=== PATIENT | female | born 1965 | race Caucasian/White ===

== ENCOUNTER 2024-02-24 13:55 | Outpatient (CLI) | payer OTHER, SELFPAY | END 2024-02-24 13:56 | disposition home or self-care (01) | LOC: LKVREF 13:58 | PROVIDERS: Visit Provider Nurse Practitioner Family | DX: I10 Essential (primary) hypertension (principal) | CPT/HCPCS: 80053 ==

== ENCOUNTER 2024-02-26 07:02 | Day surgery (SDC) | payer OTHER, SELFPAY ==
[2024-02-26] VITALS (9 sets, daily range): BP systolic 115–149; BP diastolic 78–98; PULSE 49–72; RESP 16; TEMP 36.2–37; O2SAT 96–100; BMI 21.8
--- OUTSIDE RECORDS SUMMARY | 2024-02-26 07:04 | XMS_ITS | Clinical Summary ---
Author Organization [facility] Address [place], [place] [address] Care Team Providers Care Fruit Or Nut Farmer Name Role Phone Zoe Bustos MD Primary Care Provide r Unavailable Allergies Active Allergy Reactions Criticality Noted Date Comments Amoxicillin Rash 04/20/2005 Sulfa (Sulfonamide Antibiotics) Rash 06/2005 Medications Tamoxifen Citrate 20 mg tablet Take 1 tablet by mouth once daily. 30 tablet 6 05/06/2013 12:16 PM CDT 08/10/2012 Active tamoxifen (NOLVADEX) 20 mg tablet Take 1 tablet by mouth once daily. 30 tablet 6 05/15/2014 2:50 PM CDT 11/17/2013 Active tamoxifen (NOLVADEX) 20 mg tablet Take 1 tablet by mouth once daily. 30 tablet 6 12/07/2014 1:00 PM CDT 11/23/2014 Active codeine-guaiFEN esin (ROBITUSSIN AC) 10-100 mg/5 mL liquid Take 5 mL by mouth every 6-8 hours as need for cough. 50 mL 03/21/2017 3:36 PM PUTTY TINTER MAKER 03/21/2017 Active codeine-guaiFEN esin (ROBITUSSIN AC) 10-100 mg/5 mL liquid Take 5 mL by mouth every 6-8 hours if needed for cough. 30 mL 12/15/2017 4:11 PM CDT 12/15/2017 Active clindamycin (CLEOCIN) 300 mg capsule Take 2 capsules by mouth 1 hour prior to dental visit. 6 capsule 09/20/2018 1:21 PM CDT 09/08/2018 Active Active Problems Problem Noted Date Diagnosed Date Anticoagulation monitoring, special range 2013 Family History Medical History Relation Name Comments Cancer-breast Mother age at dx 56 Cancer No Family History Cancer-colon No Family History Cancer-prostate No Family History Relation Name Status Comments Mother Social History Tobacco Use Types Packs/Day Years Used Date Smoking Tobacco: Never Smokeless Tobacco: Never Alcohol Use Standard Drinks/Week Comments Not Asked 0 (1 standard drink = 0.6 oz pur e alcohol) Comments No Sex and Gender Information Value Date Recorded Sex Assigned at Not on file Legal Sex Female 6:53 AM PUTTY TINTER MAKER Gender Identity Not on file Sexual Orientation Not on file Obstetrics History Last Filed Vital Signs Vital Sign Reading Time Taken Comments Blood Pressure 140/79 01/25/2021 1:19 PM PUTTY TINTER MAKER Pulse 102 01/25/2021 1:19 PM PUTTY TINTER MAKER Temperature 36.2 C (97.2 F) 01/25/2021 1:19 PM PUTTY TINTER MAKER Respiratory Rate 18 01/25/2021 1:19 PM PUTTY TINTER MAKER Oxygen Saturation 100% 01/25/2021 1:19 PM PUTTY TINTER MAKER Inhaled Oxygen Concentration - - Weight 60.8 kg (134 lb) 01/25/2021 1:19 PM PUTTY TINTER MAKER Height 167.6 cm (5' 6) 07/13/2013 8:35 AM CDT Body Mass Index 21.63 07/13/2013 8:35 AM CDT Plan of Treatment Health Maintenance Due Date Last Done Comments Tdap 1977 Depression screening for age 12+ 1978 HIV for age 15-65 1981 BMI (ht and wt on same day) for age 18+ 1984 Hepatitis C screening for ag e 18-79 1984 Tetanus booster 1986 Pap test for age 21-65 11/09/1987 Colonoscopy through age 75 11/09/2011 Lipids for age 45-75 11/09/2011 Mammogram for age 45-75 11/09/2011 09/10/19 11, 09/05/2010, 08/28/2009, Additional history exists Pneumococcal series for age 50+ (1 of 1 - PCV) 2016 Zoster (shingles) series for age 50+ (1 of 2) 2016 COVID-19 vaccine series ( - 2023-) 10/18/2023 Influenza for age 50-64 10/18/2023 Medical Devices Implanted Type Area Salesperson New Cars Device Identifier Shelf Expiration Date Model / Serial / Lot E Commerce Web Developer Tissue Cpx3 Ht W/Sut Tab 350cc - [id number] Implanted:Qty: 1 on 10/02/2010 at [facility] Explanted:at [facility] (Quantity not on file) Left: Chest J And J MileIQ [id number]# / [id number] / [id number] E Commerce Web Developer Tissue Cpx3 Ht W/Sut Tab 350cc - [id number] Implanted:Qty: 1 on 10/02/2010 at [facility] Explanted:at [facility] (Quantity not on file) Right: Chest J And J MileIQ [id number]# / [id number] / [id number] Dermis Flex Hd 4fdi09td Acellular - [id number] Implanted:Qty: 1 on 10/02/2010 at [facility] Explanted:at [facility] (Quantity not on file) Left: Chest Musculoskeletal Transplant [id number]# / [id number] / Dermis Flex Hd [id number] Acellular - [id number] Implanted:Qty: 1 on 10/02/2010 at [facility] Explanted:at [facility] (Quantity not on file) Right: Chest Musculoskeletal Transplant [id number]# / [id number] 132A / [id number] elround Implanted:Qty: 1 on 03/06/2011 at [facility] Explanted:at [facility] (Quantity not on file) Left: Breast R-ALLERGAN 03/29/2015 45-460 / [id number] / Description:NATRELLE STY 45- 460 GEL ROUND [id number] elround Implanted:Qty: 1 on 03/06/2011 at [facility] Explanted:at [facility] (Quantity not on file) Right: Breast R-ALLERGAN 45-460 / [id number] / Description:NATRELLE ST 45-4 60 GEL ROUND Head Hip Od28mm Md Dowd Cocr - [id number] Implanted:Qty: 1 on 07/13/2013 at [facility] Right: Hip F3 Foods [id number]# / / [id number] Acetabular Liner Hip Id28 Reflection Xlpe Implanted:Qty: 1 on 07/13/2013 at [facility] Right: Hip [id number] / / [id number] Description:ACETABULAR LINER HIP ID28 REFLECTION XLPE Procedures Procedure Name Priority Date/Time Associated Diagnosis Comments XR FFDM MAMMO UNI ADDL VIEWS LEFT (IA) Routine 09/09/2010 2:58 PM CDT Abnormal mammogram, unspecified from Last 3 Months or Most Recently Relevant to Health Maintenance Results * XR FFDM MAMMO UNI ADDL VIEWS LEFT (09/09/2010 2:58 PM CDT) Anatomical Region Laterality Modality BREASTS, Breast Left Left Mammography Impressions 09/10/2010 8:30 AM CDT 1. Suspicious LEFT breast mass which is solid on ultrasound for which ultrasound-guided biopsy is recommended. 2. Unremarkable LEFT axilla. The above results and recommendations were discussed with the patient at the conclusion of the study. An ultrasound-guided biopsy will proceed today at the [facility]. ACR 4 Suspicious Abnormality: Biopsy should be considered Noy Robert MD Body/Breast Radiologist [facility] LJS/javid [id number] Narrative 09/10/2010 8:30 AM CDT ADDITIONAL VIEWS LEFT BREAST USING FULL-FIELD DIGITAL MAMMOGRAPHY, LEFT BREAST ULTRASOUND AND LEFT AXILLARY ULTRASOUND 09/09/2010 CLINICAL HISTORY: Asymptomatic 44-year-old woman who underwent a full-field digital bilateral screening mammogram on 09/05/2010 at which time an asymmetric density was noted in the LEFT upper breast which is seen well only on the MLO exam. 90 degree lateral view of the LEFT breast, LEFT MLO cone compression and exaggerated LEFT CC cone compression demonstrates persistence of an asymmetric density. Ultrasound was performed of the LEFT upper outer breast and in the LEFT breast 1 o'clock axis, 6 cm from the nipple there is an irregular solid hypoechoic mass measuring 1.1 x 0.7 x 0.9 cm. There is no appreciable posterior acoustical enhancement or shadowing associated with this mass. Ultrasound of the LEFT axilla failed to demonstrate any abnormally enlarged or morphologically abnormal appearing lymph nodes. Procedure Note Noy Robert MD - 09/10/2010 ADDITIONAL VIEWS LEFT BREAST USING FULL-FIELD DIGITAL MAMMOGRAPHY, LEFTBREAST ULTRASOUND AND LEFT AXILLARY ULTRASOUND 09/09/2010 CLINICAL HISTORY: Asymptomatic 44-year-old woman who underwent afull-field digital bilateral screening mammogram on 09/05/2010 at [facility] an asymmetric density was noted in the LEFT upper breast which isseen well only on the MLO exam. 90 degree lateral view of the LEFT breast, LEFT MLO cone compression andexaggerated LEFT CC cone compression demonstrates persistence of anasymmetric density. Ultrasound was performed of the LEFT upper outer breast and in the LEFTbreast 1 o'clock axis, 6 cm from the nipple there is an irregular solidhypoechoic mass measuring 1.1 x 0.7 x 0.9 cm. There is no appreciableposterior acoustical enhancement or shadowing associated with this mass. Ultrasound of the LEFT axilla failed to demonstrate any abnormallyenlarged or morphologically abnormal appearing lymph nodes. IMPRESSION: 1. Suspicious LEFT breast mass which is solid on ultrasound for whichultrasound-guided biopsy is recommended. 2. Unremarkable LEFT axilla. The above results and recommendations were discussed with the patient atthe conclusion of the study. An ultrasound-guided biopsy will proceedtoday at the [facility]. ACR 4 Suspicious Abnormality: Biopsy should be considered Noy Robert MD Body/Breast Radiologist [facility] LJS/javid 1557 Zoe Bustos MD MAMMO Final Result from Last 3 Months or Most Recently Relevant to Health Maintenance [place] [address] WAYNE WANG Advance Directives * Full Code (Latest Code Status on File) Date Activated Date Inactivated Comments 07/13/2013 5:08 PM 07/15/2013 7:32 PM * Full Code Date Activated Date Inactivated Comments 07/13/2013 7:45 AM 07/13/2013 5:08 PM * Full Code Date Activated Date Inactivated Comments 03/06/2011 11:08 AM 03/07/2011 2:28 AM * Full Code Date Activated Date Inactivated Comments 10/02/2010 8:48 PM 10/04/2010 2:10 PM * Full Code Date Activated Date Inactivated Comments 10/02/2010 11:45 AM 10/02/2010 8:48 PM Care Teams Fruit Or Nut Farmer Relationship Specialty Start Date End Date Zoe Bustos MD PCP - General 09/23/04
--- OUTSIDE RECORDS SUMMARY | 2024-02-26 07:04 | XMS_ITS | Continuity of Care Document ---
Author Name [facility]NETHN [id number] Address Unknown Organization Unknown Address Unknown Encounters FILTER APPLIED:Only known Encounters with Admission Date within the last 5 years Encounter Location Admission Discharge Billing Code Telephone Operator Chief Nadeen root Emergency
--- OUTSIDE RECORDS SUMMARY | 2024-02-26 07:05 | XMS_ITS | Clinical Summary ---
Author Organization [facility] Address [address] [place] [address] Care Team Providers Care Supervisor Wire Rope Fabrication Name Role Phone Elsewhere, Pcp Primary Care Provider Unavailabl e Source Comments Patient records contain information from all sites at [facility]. For routine questions regarding patient records, call [phone] during business hours, M-F 8:00 AM - 5:00 PM Central Time. Record requests for emergency care only can be directed to [phone] at any time.[facility] Allergies Active Allergy Reactions Criticality Noted Date Comments Amoxicillin Rash 04/20/2005 Patient tolerated ceftriaxone during 01/2021. Ceftriaxone Itching Low 02/19/2021 Sulfa (Sulfonamide Antibiotics) Rash 04/20/2005 Medications losartan (COZAAR) 25 mg tablet Take 1 tablet (25 mg total) by mouth daily. 90 tablet 3 03/20/2023 Active ibuprofen (MOTRIN) 800 mg tablet Take 1 tablet (800 mg total) by mouth 4 (four) times a day for 4 days. 16 tablet 08/03/2023 Active Active Problems Problem Noted Date Diagnosed Date Hypertension Essential Primary 03/20/2023 Cancer Breast Personal History 12/09/2021 Resolved Problems Problem Noted Date Diagnosed Date Resolved Date Nephrolithiasis 04/30/2021 03/20/2023 Abscess Perinephric 02/14/2021 03/20/19 24 Stone Kidney And Ureteral 01/31/2021 Pyelonephritis Acute 01/30/2021 024 Overview (02/04/2021): Added automatically from request for surgery [id number] Immunizations Name Administration Dates Next Due Influenza, Unspecified 11/30/2014(Deferred: Othe r) Tdap 10/01/2016 Family History Medical History Relation Name Comments Breast cancer Mother Sandee Breast cancer Mother's Sister Khloe Relation Name Status Comments Mother Sandee Mother's Sister Khloe Social History Tobacco Use Types Packs/Day Years Used Date Smoking Tobacco: Never Smokeless Tobacco: Never Tobacco Cessation:Counseling Given: Yes Alcohol Use Standard Drinks/Week Comments Yes 1 (1 standard drink = 0.6 oz pur e alcohol) social [facility] Utilities Answer Date Recorded In the past 12 months has e electric, gas, oil, or water [employer] threatened to shut off services in your home? No 03/17/2023 Humiliation, Afraid, Rape, and Kick questionnair e Answer Date Recorded Within the last year, have y ou been afraid of your partner or ex-partner? No 10/17/2021 Within the last year, have y ou been humiliated or emotionally abused in other ways by your partner or ex-partner? No Within the last year, have y ou been kicked, hit, slapped, or otherwise physically hurt by your partner or ex-partner? No 10/17/2021 Within the last year, have y ou been raped or forced to have any kind of sexual activity by your partner or ex-partner? No 10/17/2021 Social Connection and Isolat ion Panel [NHANES] Answer Date Recorded In a typical week, how many times do you talk on the phone with family, friends, or neighbors? More than three times a week 10/17/2021 How often do you get togethe r with friends or relatives? More than three times a week 10/17/2021 How often do you attend chur ch or yarsanism services? More than 4 times per year 10/17/2021 Do you belong to any clubs o r organizations such as jain groups, unions, fraternal or athletic groups, or school groups? No 10/17/2021 How often do you attend meet ings of the clubs or organizations you belong to? Never 10/17/2021 Are you , , di vorced, , never , or living with a partner? 10/17/2021 AUDIT-C Answer Date Recorded Q1: How often do you have a drink containing alc ohol? Monthly or less 10/17/2021 Q2: How many drinks containi ng alcohol do you have on a typical day when you are drinking? 1 or 2 10/17/2021 Q3: How often do you have si x or more drinks on one occasion? Never 10/17/2021 Overall Financial Resource Strain (CARDIA) Answe r Date Recorded How hard is it for you to pa y for the very basics like food, housing, medical care, and heating? Not hard at all 10/17/2021 PHQ-2 Answer Date Recorded PHQ-2 Score 0 02/21/2021 [facility] Occupat ional Health - Occupational Stress Questionnaire Answer Date Recorded Do you feel stress - tense, restless, nervous, or anxious, or unable to sleep at night because your mind is troubled all the time - these days? Not at all 10/17/2021 Exercise Vital Sign Answer Date Recorde d On average, how many days pe r week do you engage in moderate to strenuous exercise (like a brisk walk)? 6 days 03/17/2023 On average, how many minutes do you engage in exercise at this level? 30 min 03/17/2023 Hunger Vital Sign Answer Date Recorded Within the past 12 months, y ou worried that your food would run out before you got the money to buy more. Never true 03/17/19 24 Within the past 12 months, t he food you bought just didn't last and you didn't have money to get more. Never true 03/17/2023 PRAPARE - Transportation Answer Date Re corded In the past 12 months, has l ack of transportation kept you from medical appointments or from getting medications? No 02/18 In the past 12 months, has l ack of transportation kept you from meetings, work, or from getting things needed for daily living? No 03/17/2023 Nutrition Answer Date Recorded On average, how many serving s of fruits and vegetables do you eat per day (serving size is equal to 1 cup or approximately the size of a tennis ball)? 3-5 03/17/2023 Dental Answer Date Recorded Dental: Regular Dentist Yes 02/21/19 Employment Answer Date Recorded Employment status Employed and actively working without restrictions 03/17/2023 Housing Stability Answer Date Recorded What is your living situation today? I have a [address] [place] [address] to live 03/17/2023 Education Answer Date Recorded What is the highest level of school you have completed or the highest degree you have received? Bachelor's degree (e.g., BA, AB, BS) 02/21/2021 Comments No Sex and Gender Information Value Date Recorded Sex Assigned at Female 02/21/2021 8:39 AM AIR TRAFFIC SYSTEMS TECHNICIAN Legal Sex Female 8:45 PM AIR TRAFFIC SYSTEMS TECHNICIAN Gender Identity Female 02/21/2021 8:39 AM AIR TRAFFIC SYSTEMS TECHNICIAN Sexual Orientation Straight 02/21/2021 8: 39 AM AIR TRAFFIC SYSTEMS TECHNICIAN Last Filed Vital Signs Vital Sign Reading Time Taken Comments Blood Pressure 126/93 08/03/2023 7:00 PM CDT Pulse 66 08/03/2023 7:00 PM CDT Temperature 36.6 C (97.9 F) 08/03/2023 6:48 PM CDT Respiratory Rate 14 08/03/2023 6:48 PM CDT Oxygen Saturation 100% 08/03/2023 7:00 PM CDT Inhaled Oxygen Concentration - - Weight 63.2 kg (139 lb 4.8 oz) 08/03/2023 6:50 P M CDT Height 167.6 cm (5' 6) 08/03/2023 6:50 PM CDT Body Mass Index 22.48 08/03/2023 6:50 PM CDT Plan of Treatment Health Maintenance Due Date Last Done Comments CT Colonography 1966 Cologuard 1966 FIT 1966 Hepatitis C Screening 1966 Hepatitis B Vaccines (1 of 3 - 19+ 3-dose series) 1985 Pneumococcal vaccine (50+ years) (1 of 1 - PCV) 2016 Zoster Vaccines (1 of 2) 2016 Depression Screening (Annual PHQ-2) 02/16/2023 COVID-19 Vaccine (1 - 2023- season) 2023 Influenza Vaccine (#1) 2023 Creatinine Level (Kidney Function Test) 03/20/2024 03/20/2023, 12/01/2021, 09/13/2021, Additional history exists Office Visit for Blood Pressure Check / Re-check 03/20/2024 03/20/2023 Potassium Level 03/20/2024 03/20/2023, 11/16, 09/13/2021, Additional history exists Sodium Level 03/20/2024 03/20/2023, 11/16, 09/13/2021, Additional history exists Cervical/Vaginal Cancer Screening 03/21/2025 03/21/2022 (Performed elsewhere) Fasting Glucose for Diabetes Screening 03/20/2026 03/20/2023, 12/01/2021, 09/13/2021, Additional history exists DTaP,Tdap,and Td Vaccines (2 - Td or Tdap) 10/01/2026 10/01/2016 Lipid (Cholesterol) Screening 03/20/2028 03/20/2023 Colonoscopy 07/26/2029 07/27/2019 (Perf ormed elsewhere) Colorectal Cancer Screening 07/26/2029 IPV Vaccines Aged Out No longer eligi ble based on patient's age to complete this topic Medical Devices Implanted Type Area Senior Executive Assistant Device Identifier Shelf Expiration Date Model / Serial / Lot Breast Implant Breast Implant Bilateral : Breast Hip Implant Hip Implant Right: Hip Tria Firm With Side Holes Implanted:Qt y: 1 on 04/29/2021 by Jay Jones M.D. at [facility] Stent Other Right: Ureter [employer] [id number] 01/08/2024 [id number] / / [id number] Procedures Procedure Name Priority Date/Time Associated Diagnosis Comments LIPID PANEL, S Routine 03/20/2023 9:58 AM AIR TRAFFIC SYSTEMS TECHNICIAN Hypertension Essential Primary COMPREHENSIVE METABOLIC PANEL, S/P Routine 03/20/2023 9:58 AM AIR TRAFFIC SYSTEMS TECHNICIAN Hypertension Essential Primary from Last 3 Months or Most Recently Relevant to Health Maintenance Results * (ABNORMAL) Lipid Panel (03/20/2023 9:58 AM AIR TRAFFIC SYSTEMS TECHNICIAN) Triglycerides 65 mg/dL 03/20/2023 11:21 AM AIR TRAFFIC SYSTEMS TECHNICIAN NPRG Comment: ----REFERENCE VALUE---- Normal: <150 mg/dL Borderline High: 150-199 mg/dL High: 200-499 mg/dL Very High: > or =500 mg/dL Cholesterol, Total 220(H) mg/dL 2023 11:21 AM AIR TRAFFIC SYSTEMS TECHNICIAN NPRG Comment: ----REFERENCE VALUE---- Desirable: < 200 mg/dL Borderline High: 200 - 239 mg/dL High: > or = 240 mg/dL Cholesterol, LDL, Calculated 138(H) mg/dL 03/20/2023 11:21 AM AIR TRAFFIC SYSTEMS TECHNICIAN NPRG Comment: ----REFERENCE VALUE---- Desirable: <100 mg/dL Above Desirable: 100-129 mg/dL Borderline High: 130-159 mg/dL High: 160-189 mg/dL Very High: >=190 mg/dL ----ADDITIONAL INFORMATION---- LDL cholesterol calculated using the Vasques/NIH equation. Cholesterol, HDL 71 >=50 mg/dL 03/20/19 11:21 AM AIR TRAFFIC SYSTEMS TECHNICIAN NPRG Cholesterol, Non-HDL, Calculated 149 mg/dL 03/20/2023 11:21 AM AIR TRAFFIC SYSTEMS TECHNICIAN NPRG Comment: ----REFERENCE VALUE---- Desirable: <130 mg/dL Above Desirable: 130-159 mg/dL Borderline High: 160-189 mg/dL High: 190-219 mg/dL Very High: > or =220 mg/dL Fasting (8 HR or more) Yes 03/20/2023 10:36 AM AIR TRAFFIC SYSTEMS TECHNICIAN NPRG Blood (Blood, Venous) 03/20/2023 9:58 AM AIR TRAFFIC SYSTEMS TECHNICIAN 03/20/2023 10:36 AM AIR TRAFFIC SYSTEMS TECHNICIAN Angel Reeder M.D. LAB BLOOD ADD-ON Final Result [facility] [address] [place] [address], [facility] NPRG [facility] [address] [place] [address] * Comprehensive Metabolic Panel (03/20/2023 9:58 AM AIR TRAFFIC SYSTEMS TECHNICIAN) Potassium, P 4.2 3.6 - 5.2 mmol/L 03/20/2023 11:21 AM AIR TRAFFIC SYSTEMS TECHNICIAN NPRG Sodium, P 140 135 - 145 mmol/L 03/20/2023 11:21 AM AIR TRAFFIC SYSTEMS TECHNICIAN NPRG Chloride, P 101 98 - 107 mmol/L 03/20/2023 11:21 AM AIR TRAFFIC SYSTEMS TECHNICIAN NPRG Bicarbonate, P 26 22 - 29 mmol/L 03/20/2023 11:21 AM AIR TRAFFIC SYSTEMS TECHNICIAN NPRG Anion Gap, P 13 7 - 15 03/20/2023 11:21 AM AIR TRAFFIC SYSTEMS TECHNICIAN NPRG BUN (Blood Urea Nitrogen), P 13 6 - 21 mg/dL 03/20/2023 11:21 AM AIR TRAFFIC SYSTEMS TECHNICIAN NPRG Creatinine 0.89 0.59 - 1.04 mg/dL 03/20/2023 11:21 AM AIR TRAFFIC SYSTEMS TECHNICIAN NPRG Estimated GFR (eGFR) 76 >=60 mL/min/BS A 03/20/2023 11:21 AM AIR TRAFFIC SYSTEMS TECHNICIAN NPRG Comment: Estimated GFR calculated using the 2020 CKD_EPI creatinine equation. Calcium, Total, P 9.9 8.6 - 10.0 mg/dL 03/20/2023 11:21 AM AIR TRAFFIC SYSTEMS TECHNICIAN NPRG Glucose, P 87 70 - 140 mg/dL 03/20/2023 11:21 AM AIR TRAFFIC SYSTEMS TECHNICIAN NPRG Protein, Total, P 7.1 6.3 - 7.9 g/dL 03/20/2023 11:21 AM AIR TRAFFIC SYSTEMS TECHNICIAN NPRG Albumin, P 4.6 3.5 - 5.0 g/dL 03/20/2023 11:21 AM AIR TRAFFIC SYSTEMS TECHNICIAN NPRG Aspartate Aminotransferase (AST), P 25 8 - 43 U/L 03/20/2023 11:21 AM AIR TRAFFIC SYSTEMS TECHNICIAN NPRG Alkaline Phosphatase, P 92 35 - 104 U/L 03/20/2023 11:21 AM AIR TRAFFIC SYSTEMS TECHNICIAN NPRG Alanine Aminotransferase (ALT), P 15 7 - 45 U/L 03/20/2023 11:21 AM AIR TRAFFIC SYSTEMS TECHNICIAN NPRG Bilirubin, Total, P 0.9 0.0 - 1.2 mg/dL 03/20/2023 11:21 AM AIR TRAFFIC SYSTEMS TECHNICIAN NPRG Blood (Blood, Venous) 03/20/2023 9:58 AM AIR TRAFFIC SYSTEMS TECHNICIAN 03/20/2023 10:36 AM AIR TRAFFIC SYSTEMS TECHNICIAN Angel Reeder M.D. LAB BLOOD ADD-ON Final Result [facility] [address] [place] [address], [facility] NPRG [facility] [address] [place] [phone] from Last 3 Months or Most Recently Relevant to Health Maintenance Insurance [employer] [place] [address] [place], [place] [id number] Advance Directives For more information, please contact: [phone] * Full Code (Latest Code Status on File) Date Activated Date Inactivated Comments 02/13/2021 6:29 AM 02/17/2021 7:40 PM Question Answer Comments Full Code: Discussed Care Teams Supervisor Wire Rope Fabrication Relationship Specialty Start Date End Date Elsewhere, Pcp PCP - General 06/09/21
--- OUTSIDE RECORDS SUMMARY | 2024-02-26 07:05 | XMS_ITS | Referral Summary ---
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 For routine questions regarding patient records, call [phone] during business hours, M-F 8:00 AM - 5:00 PM Central Time. Record requests for emergency care only can be directed to [phone] at any time.[facility] Allergies Active Allergy Reactions Criticality Noted Date [...] (02/04/2021): Added automatically from request for surgery [id number] Immunizations Name Administration Dates Next Due Influenza, Unspecified 11/30/2014(Deferred: Othe r) Tdap 10/01/2016 Social History Tobacco Use Types Packs/Day Years Used Date Smoking Tobacco: Never Smokeless Tobacco: Never Tobacco Cessation:Counseling Given: Yes Alcohol Use Standard Drinks/Week Comments Yes 1 (1 standard drink = 0.6 oz pur e alcohol) social [facility] Utilities Answer Date Recorded In the past 12 months has e [employer], gas, oil, or water [employer] threatened to shut off services in your [...] week 10/17/2021 How often do you attend [facility] or church services? More than 4 times per year [...] Answer Date Recorded PHQ-2 Score 0 02/21/2021 [facility] - Occupational Stress [...] your living situation today? I have a [facility] place to live 03/17/2023 Education Answer Date Recorded What is the highest level of school you have completed or the highest degree you have received? Bachelor's degree (e.g., BA, AB, BS) 02/21/2021 Comments No Sex and Gender Information Value Date Recorded Sex Assigned at Female 02/21/2021 8:39 AM BARGAIN TABLE CLERK Legal Sex Female 8:45 PM BARGAIN TABLE CLERK Gender Identity Female 02/21/2021 8:39 AM BARGAIN TABLE CLERK Sexual Orientation Straight 02/21/2021 8: 39 AM BARGAIN TABLE CLERK Last Filed Vital Signs Vital Sign Reading [...] 08/03/2023 6:50 PM CDT Plan of Treatment Not on file Medical Devices Implanted Type Area Angiography Nurse Device Identifier Shelf Expiration Date Model / Serial / Lot Breast Implant Breast Implant Bilateral : Breast Hip Implant Hip Implant Right: Hip [employer] With Side Holes Implanted:Qt y: 1 on 04/29/2021 by Jay Jones M.D. at [facility] [employer] Other Right: [employer] [id number] 01/08/2024 [id number] / / [id number] Procedures Procedure Name Priority Date/Time Associated Diagnosis Comments LIPID PANEL, S Routine 03/20/2023 9:58 AM BARGAIN TABLE CLERK Hypertension Essential Primary COMPREHENSIVE METABOLIC PANEL, S/P Routine 03/20/2023 9:58 AM BARGAIN TABLE CLERK Hypertension Essential Primary from Last 3 Months or Most Recently Relevant to Health Maintenance Results * (ABNORMAL) Lipid Panel (03/20/2023 9:58 AM BARGAIN TABLE CLERK) Triglycerides 65 mg/dL 03/20/2023 11:21 AM BARGAIN TABLE CLERK NPRG Comment: ----REFERENCE VALUE---- Normal: <150 mg/dL Borderline High: 150-199 mg/dL High: 200-499 mg/dL Very High: > or =500 mg/dL Cholesterol, Total 220(H) mg/dL 2023 11:21 AM BARGAIN TABLE CLERK NPRG Comment: ----REFERENCE VALUE---- Desirable: < 200 mg/dL Borderline High: 200 - 239 mg/dL High: > or = 240 mg/dL Cholesterol, LDL, Calculated 138(H) mg/dL 03/20/2023 11:21 AM [facility] NPRG Comment: ----REFERENCE VALUE---- Desirable: <100 mg/dL Above Desirable: 100-129 mg/dL Borderline High: 130-159 mg/dL High: 160-189 mg/dL Very High: >=190 mg/dL ----ADDITIONAL INFORMATION---- LDL cholesterol calculated using the Vasques/NIH equation. Cholesterol, HDL 71 >=50 mg/dL 03/20/19 11:21 AM [facility] NPRG Cholesterol, Non-HDL, Calculated 149 mg/dL 03/20/2023 11:21 AM [facility] NPRG Comment: ----REFERENCE VALUE---- Desirable: <130 mg/dL Above Desirable: 130-159 mg/dL Borderline High: 160-189 mg/dL High: 190-219 mg/dL Very High: > or =220 mg/dL Fasting (8 HR or more) Yes 03/20/2023 10:36 AM [facility] NPR Blood (Blood, Venous) 03/20/2023 9:58 AM BARGAIN TABLE CLERK 03/20/2023 10:36 AM [facility] Angel Reeder M.D. LAB BLOOD ADD-ON Final Result [facility] [address] [place] [address], [facility] [address] [place] [address] * Comprehensive Metabolic Panel (03/20/2023 9:58 AM [facility]) Pathologist [facility] Potassium, P 4.2 3.6 - 5.2 mmol/L 03/20/2023 11:21 AM BARGAIN TABLE CLERK NPRG Sodium, P 140 135 - 145 mmol/L 03/20/2023 11:21 AM BARGAIN TABLE CLERK NPRG Chloride, P 101 98 - 107 mmol/L 03/20/2023 11:21 AM BARGAIN TABLE CLERK NPRG Bicarbonate, P 26 22 - 29 mmol/L 03/20/2023 11:21 AM BARGAIN TABLE CLERK NPRG Anion Gap, P 13 7 - 15 03/20/2023 11:21 AM BARGAIN TABLE CLERK NPRG BUN (Blood Urea Nitrogen), P 13 6 - 21 mg/dL 03/20/2023 11:21 AM BARGAIN TABLE CLERK NPRG Creatinine 0.89 0.59 - 1.04 mg/dL 03/20/2023 11:21 AM BARGAIN TABLE CLERK NPRG Estimated GFR (eGFR) 76 >=60 mL/min/BS A 03/20/2023 11:21 AM BARGAIN TABLE CLERK NPRG Comment: Estimated GFR calculated using the 2020 CKD_EPI creatinine equation. Calcium, Total, P 9.9 8.6 - 10.0 mg/dL 03/20/2023 11:21 AM BARGAIN TABLE CLERK NPRG Glucose, P 87 70 - 140 mg/dL 03/20/2023 11:21 AM BARGAIN TABLE CLERK NPRG Protein, Total, P 7.1 6.3 - 7.9 g/dL 03/20/2023 11:21 AM BARGAIN TABLE CLERK NPRG Albumin, P 4.6 3.5 - 5.0 g/dL 03/20/2023 11:21 AM BARGAIN TABLE CLERK NPRG Aspartate Aminotransferase (AST), P 25 8 - 43 U/L 03/20/2023 11:21 AM BARGAIN TABLE CLERK NPRG Alkaline Phosphatase, P 92 35 - 104 U/L 03/20/2023 11:21 AM BARGAIN TABLE CLERK NPR[facility] Alanine Aminotransferase (ALT), P 15 7 - 45 U/L 03/20/2023 11:21 AM BARGAIN TABLE CLERK NPRG Bilirubin, Total, P 0.9 0.0 - 1.2 mg/dL 03/20/2023 11:21 AM BARGAIN TABLE CLERK NPRG Blood (Blood, Venous) 03/20/2023 9:58 AM BARGAIN TABLE CLERK 03/20/2023 10:36 AM BARGAIN TABLE CLERK us Angel Reeder M.D. LAB BLOOD ADD-ON Final Result [facility] [address] [place] [address], [facility] NPRG [facility] [address] [place] [address] from Last 3 Months or Most Recently Relevant to Health Maintenance Insurance [employer] [facility] [employer] [place] [id number] [facility] [place] [id number] Advance Directives For more information, please contact: [phone] * Full Code (Latest Code Status on File) Date Activated Date Inactivated Comments 02/13/2021 6:29 AM 02/17/2021 7:40 PM Question Answer Comments Full Code: Discussed Care Teams Wind Turbine Machinist Relationship Specialty Start Date End Date Elsewhere, Pcp PCP - General 06/09/21
--- OUTSIDE RECORDS SUMMARY | 2024-02-26 07:05 | XMS_ITS ---
Author Organization [facility] Address [address] [place] [address] Care Team Providers Care Extension Work Instructor Name Role Phone Unavailable Unavailable Unavailable Surgery Details Not on file Complications Check Surgery Details section. Procedure Estimated Blood Loss Check Surgery Details section. Procedure Findings Check Surgery Details section. Procedure Specimens Taken Check Surgery Details section.
--- NOTE | 2024-02-26 07:37 | W.PM.H&PU ---
History & Physical Update History & Physical Update H&P Reviewed and patient assessed: No changes noted
--- NOTE | 2024-02-26 07:37 | PM.ORPRC ---
Procedure Note Date of procedure: 02/26/24 Procedure: PREOPERATIVE DIAGNOSES: 1. Left distal radius fracture (extra-articular with dorsal angulation) POSTOPERATIVE DIAGNOSES: 1. Left distal radius fracture (extra-articular with dorsal angulation) NAME OF OPERATION: 1. Left distal radius open reduction with internal fixation of 2 part extra-articular fracture SURGEON: cJarlos Marrufo MD [facility] CONSULTANT: Ronny Salomon and Carole Bellamy P.A.-C. - An temporary office assistant was critical for this case to assist in patient positioning, limb manipulation, tissue retraction, closure, and splinting. ANESTHESIA: Axillary nerve block with monitored anesthesia care IMPLANTS: [employer] DVR Crosslock distal radius locking plate with 2.7 mm fully-threaded locking pegs, 2.2 mm smooth locking pegs, and 2.7 mm nonlocking screws.] TOURNIQUET: 42 minutes at 250 mmHg. INDICATIONS: The patient is a pleasant, 58-year-old female who sustained a left wrist injury after a fall. They had difficulty with use of the extremity and deformity. Workup included xrays which revealed a dorsally angulated distal radius fracture. Given these findings, surgery was recommended to stabilize the fracture and allow for healing in a more anatomic position. Prior to surgery the risks and benefits of the procedure were discussed with patient, all questions were answered, and informed consent was obtained. FINDINGS: Closed, extra-articular, dorsally angulated distal radius fracture with dorsal comminution. PROCEDURE: Following a thorough discussion of risks, benefits, and alternatives, consent was obtained and the operative extremity was marked. An axillary nerve block was performed by anesthesia staff. The patient was then brought to the operating room and placed supine on the operating table. Monitored anesthesia care was provided and patient was given 1 g IV Ancef preoperatively for prophylaxis. The operative extremity was prepped and draped in usual sterile fashion . A surgical time-out was performed confirming patient identity surgical site and surgical procedure. The operative extremity was exsanguinated and the tourniquet inflated to 250 mmHg. A longitudinal incision was made overlying the FCR tendon. Sharp incision through skin and subcutaneous tissue allowed identification of the FCR tendon. The superficial tendon sheath was incised in line with the skin incision, and tendon was retracted ulnarly. The deep tendon sheath were then incised in line with the incision. The FPL was retracted ulnarly. The pronator quadratus was sharply released from the distal and radial borders of the radius, subperiosteally elevated, and retracted ulnarly. The fracture was identified and cleared of interposed periosteum / fracture hematoma. A reduction was performed and the appropriate plate selected. Plate was provisionally fixed to the distal radius with K-wires, and correct position was confirmed with fluoroscopic imaging. Distal screw holes were filled with a combination of threaded and smooth locking pegs with care taken to keep these screws extra-articular in the subchondral bone. The oblong proximal screw hole and two proximal locking shaft screws. Fluoroscopic imaging confirmed anatomic reduction of the fracture with excellent positioning of the plate and screws. At this stage, the wound was thoroughly irrigated with normal saline. Pronator quadratus was closed over the plate with 3-0 Vicryl [id number] interrupted sutures. Tourniquet was released. Total tourniquet time was 42 minutes. Hemostasis was achieved with electrocautery. Wound was again irrigated with normal saline. Wound closure was then completed with 3-0 Vicryl subcutaneous sutures, 2-0 Stratafix subcuticular sutures, and Dermabond. Sterile dressings were applied followed by the application of a volar/dorsal splint. The patient was awoken from anesthesia and transferred to PACU in stable condition. PLAN: 1. Elevate operative extremity. 2. Ice, acetaminophen or ibuprofen PRN. 3. Oxycodone as needed for more severe pain 4. Follow up in Orthopedic Clinic in 10-14 days for wound check and splint removal.
[2024-02-26] MEDS: 0.9 % SODIUM CHLORIDE 500 ML 500 ML 100 ML IV ×2 (08:14→09:31)
[2024-02-26] MEDS: SODIUM CHLORIDE 0.9 % (FLUSH) 10 ML SYRINGE IVF (08:15)
[2024-02-26] MEDS: fentaNYL 100 MCG/2 ML inj IVP (08:45)
[2024-02-26] MEDS: MIDAZOLAM HCL 1 MG/ML inj IVP (08:45)
--- NOTE | 2024-02-26 08:45 | SUR.PREOP ---
TIME?OUT:?0844 PT/RN/MDA?VERIFICATION?OF?SURGICAL?SITE,?PROCEDURE,?AND?CONSENT OBTAINED?PRIOR?TO?INVASIVE?PROCEDURE. all in agreement
[2024-02-26] MEDS: CEFAZOLIN 2 GM INJ IVP (09:15)
--- NOTE | 2024-02-26 09:21 | CRLHL7_ITS ---
For Patients: As a result of the Cures Act, medical imaging exams and procedure reports are released immediately into your electronic medical record. You may view this report before your referring provider. If you have questions, please contact your health care provider. Indication: ORIF LEFT WRIST Technique: Three fluoroscopic images of the left wrist. Fluoroscopic time 16.6 seconds. IMPRESSION: Fluoroscopic guidance for open reduction internal fixation distal left radial fracture. Dictated by Francois Caputo MD @ 02/26/2024 10:52:51 AM (Electronically Signed)
--- NOTE | 2024-02-26 10:41 | W.PM.NB ---
Nerve Block Nerve Block Time Seen by Provider: 08:46 Date Seen: 02/26/24 Type of block requested by surgeon for post-operative analgesia: axillary Side: left Time out performed: Yes Verification of patient name: Yes Verification of date of : Yes Site marking: site marked Name of person performing procedure: Juan Continuous monitoring Was continuous monitoring of O2 sat, B/P, director of cardiac rehabilitation, recorded every 15 minutes?: Yes Procedure Checklist: sterile prep, needles and gloves Ultrasound guided. Images saved: Yes Medications given in 5ml increments after negative aspiration: Ropivicaine %: 0.5 mL: 30 Needle gauge: 22 Patient tolerated procedure well: Yes Additional comments: Needle noted adjacent to nerve Block Charges Block Charge (with Pro Fee): Brachial Plexus Use of Ultrasound Machine for Block: Yes- US Guidance/pain block
--- NOTE | 2024-02-26 11:03 | P.ANES_ITS ---
Anesthesia Charges Start Date/Time Anesthesia Start Date: 02/26/24 Anesthesia Start Time: 09:05 Stop Date/Time Anesthesia Stop Date: 02/26/24 Anesthesia Stop Time: 10:58 Coding CPT Codes CPT Codes: ANESTH LOWER ARM SURGERY - 46097 ([id number]) P2 - PATIENT W/MILD SYST DISEASE, QK - ACADEMIC ASSOCIATE 2-4 CNCRNT ANES PROC, QX - CLERICAL GRADER SVC W/ MD MED DIRECTION
--- NOTE | 2024-02-26 11:03 | W.ANESCHARGE ---
Anesthesia Charges Start Date/Time Anesthesia Start Date: 02/26/24 Anesthesia Start Time: 09:05 Stop Date/Time Anesthesia Stop Date: 02/26/24 Anesthesia Stop Time: 10:58 Coding CPT Codes CPT Codes: ANESTH LOWER ARM SURGERY - 32491 ([id number]) P2 - PATIENT W/MILD SYST DISEASE, QK - SENSITOMETRIST 2-4 CNCRNT ANES PROC, QX - DOUGHNUT MACHINE OPERATOR SVC W/ MD MED DIRECTION
--- NOTE | 2024-02-26 12:20 | SUR.PHASEII ---
pt declines pain, right arm in sling. VSS. Tolerating juice and toast. Her ride, her son Luther, is here.
--- NOTE | 2024-02-26 13:00 | SUR.PHASEII ---
wheelchair out to car with son.
== END 2024-02-26 13:03 | disposition home or self-care (01) ==
LOC: OR 07:03
PROVIDERS: Visit Provider Orthopaedic Surgery
PROC: (CPT 25575; principal; 2024-02-26 08:45)
DX: S52.552A Other extraarticular fracture of lower end of left radius, initial encounter for closed fracture (principal); G89.18 Other acute postprocedural pain
CPT/HCPCS: 25607; 01830; 64415; 73100; 76000; 76942; C1713; J0690; J1100; J1885; J2250; J2405; J2704; J2795; J3010; J7030